=== PATIENT | female | born 1945 | race Caucasian/White ===

== ENCOUNTER 2019-10-09 11:57 | Emergency (ER) | payer OTHER, BC ==
[2019-10-09 12:04] VITALS: BP 133/89; PULSE 81; TEMP 97.5; BMI 33.6
[2019-10-09] MEDS ORDERED: OXYMETAZOLINE 0.05% NASAL SOLUTION 15 ML BOTTLE NS ONE ×2 (12:15→12:19)
--- NOTE | 2019-10-09 12:21 | PDOC ---
History of Present Illness - General Chief Complaint: Nasal Bleeding Stated Complaint: NOSE BLEED Time Seen by Provider: 10/09/19 12:03 - History of Present Illness Initial Comments: 10/09/19 12:18 74 F with h/o HLD presenting to ED with nosebleed. Pt states that she has had a nosebleed on and off for the past several weeks. Most of the time it resolves on its own. However, today pt has been unable to control the bleeding since 10AM. She states that it bleeds mostly out of her L nostril. Denies any injury or trauma to her nose. Pt takes baby aspirin daily, no other AC. Past History - Past Medical History Allergies/Adverse Reactions: Allergies Allergy/AdvReac Type Severity Reaction Status Date / Time codeine Allergy Verified 07/18/13 18:42 Home Medications: Ambulatory Orders Anastrozole [Arimidex -] 1 mg PO DAILY 07/18/13 Aspirin [ASA -] 81 mg PO DAILY 07/18/13 Atorvastatin Ca [Lipitor] 10 mg PO HS 07/18/13 Cholecalciferol (Vitamin D3) [Vitamin D] 1,000 unit PO 07/18/13 Gabapentin 300 mg PO 07/18/13 COPD: No Hypercholesterolemia: Yes - Psycho Social/Smoking Cessation Hx Smoking Status: No Smoking History: Never smoked Number of Cigarettes Smoked Daily: 0 Hx Alcohol Use: Yes (HALF GLASS OF WINE DAILY) Drug/Substance Use Hx: No Review of Systems - Review of Systems Comments:: 10/09/19 12:19 "GENERAL/CONSTITUTIONAL: No fever or chills. No weakness. HEAD, EYES, EARS, NOSE AND THROAT: + nosebleed, No change in vision. No ear pain or discharge. No sore throat. CARDIOVASCULAR: No chest pain, no shortness of breath, no loss of consciousness RESPIRATORY: No cough, wheezing, or hemoptysis. GASTROINTESTINAL: No nausea, vomiting, diarrhea or constipation. GENITOURINARY: No dysuria, frequency, or change in urination. MUSCULOSKELETAL: No joint or muscle swelling or pain. No neck or back pain. SKIN: No rash NEUROLOGIC: No vertigo, no change in strength/sensation. ENDOCRINE: No increased thirst. No abnormal weight change. HEMATOLOGIC/LYMPHATIC: No anemia, easy bleeding, or history of blood clots. ALLERGIC/IMMUNOLOGIC: No hives or skin allergy. *Physical Exam - Vital Signs Last Vital Signs Temp Pulse Resp BP Pulse Ox 97.5 F L 81 18 133/89 96 10/09/19 11:57 10/09/19 11:57 10/09/19 11:57 10/09/19 11:57 10/09/19 11:57 - Physical Exam 10/09/19 12:20 "GENERAL: Awake, alert, and fully oriented, in no acute distress. HEAD: No signs of trauma EYES: PERRLA, EOMI, sclera anicteric, conjunctiva clear ENT: + active bleeding from L nare, source not visualized, + blood in posterior OP, Auricles normal inspection, hearing grossly normal, Moist mucosa NECK: Nontender, no stepoffs, Normal ROM, supple, no lymphadenopathy, JVD, or masses LUNGS: Breath sounds equal, clear to auscultation bilaterally. No wheezes, and no crackles HEART: Regular rate and rhythm, normal S1 and S2, no murmurs, rubs or gallops ABDOMEN: Soft, nontender, normoactive bowel sounds. No guarding, no rebound. No masses EXTREMITIES: Normal range of motion, no edema. No clubbing or cyanosis. No cords, erythema, or tenderness NEUROLOGICAL: Cranial nerves II through XII intact. 5/5 strength and sensation in all extremities, Normal speech, normal gait, normal cerebellar function SKIN: Warm, Dry, normal turgor, no rashes or lesions noted. ED Treatment Course - LABORATORY CBC & Chemistry Diagram: 10/09/19 12:32 10/09/19 12:32 Medical Decision Making - Medical Decision Making 10/09/19 12:20 74 F with epistaxis. On baby ASA. Pt HD stable. - Labs, coags - Direct pressure applied with nose clip 10/09/19 12:39 Pt reassessed after 15 minutes of direct pressure - continues to have bleeding from L nare Afrin spray administered Clip re-placed 10/09/19 13:12 Pt continues to have bleeding despite afrin and pressure Will attempt to pack with TXA-soaked gauze 10/09/19 13:55 TXA soaked gauze inserted into L nare for 10 minutes with subsequent resolution of epistaxis Pt is well appearing, with normal vitals. Clinically stable for DC at this time. I discussed the physical exam findings, ancillary test results and final diagnoses with the patients family. I answered all of their questions. The family was satisfied with the care received and felt comfortable with the discharge plan and treatment plan. They agree to follow up with the primary care physician within 24-72 hours. Discharge - Discharge Information Problems reviewed: Yes Clinical Impression/Diagnosis: Epistaxis Condition: Stable Disposition: HOME - Follow up/Referral Referrals: Dylan Damon MD [Staff Physician] - - Patient Discharge Instructions Patient Printed Discharge Instructions: DI for Nosebleed Additional Instructions: Keep your nostrils moisturized to prevent recurrent nosebleeds. Apply vaseline with a cotton swab to both nostrils daily. A humidifier at home can help prevent drying out of your nostrils. If you have a recurrent nosebleed, administer the Afrin nasal spray, pinch your nose, and lean forward. If you have persistent nosebleed that does not stop with direct pressure, lightheadedness or dizziness, or any other concerning symptoms, return to the ER immediately. Otherwise, follow up with an [id number] specialist for further evaluation of your nosebleeds. Call the number provided to make an appointment. Follow up with your primary doctor within 1 week for a check up. - Post Discharge Activity
[2019-10-09 12:43] LABS: BASO % 1.2 % (0-2.0); HEMOGLOBIN 14.3 GM/dl (10.7-15.3); MEAN CELL VOLUME 100.8 fl (80-96); MEAN PLT VOLUME 7.4 fl (7.5-11.1); MONO % 6.1 % (3.8-10.2); WHITE BLOOD COUNT 10.1 K/mm3 (4.0-10.8)
[2019-10-09 12:48] LABS: EOS % 1.5 % (0-4.5); HEMATOCRIT 42.4 % (32.4-45.2); LYMPH % 7.7 % (8-40); MCH 33.9 pg (25.7-33.7); MCHC 33.7 g/dl (32.0-36.0); NEUT % 83.5 % (42.8-82.8); PLATELET COUNT 344 K/MM3 (134-434); RBC 4.21 M/mm3 (3.60-5.2); RDW 12.7 % (11.6-15.6)
[2019-10-09 12:50] LABS: INR 1.06 (0.82-1.09); PROTHROMBIN TIME (PATIENT) 11.9 SEC (10.2-13.0)
[2019-10-09 12:51] LABS: ALBUMIN 3.7 g/dl (3.4-5.0); BILIRUBIN,TOTAL 0.9 mg/dl (0.2-1); CALCIUM 9.4 mg/dl (8.5-10); CREATININE 0.9 mg/dl (0.55-1.3); POTASSIUM 4.1 mmol/L (3.5-5.1); TOT PROT 7.2 g/dl (6.4-8.2)
[2019-10-09] MEDS ORDERED: TRANEXAMIC ACID 1000 MG/10 ML VIAL IVPUSH ONE (13:01)
[2019-10-09] MEDS ORDERED: TRANEXAMIC ACID 1000 MG/10 ML VIAL ONE (13:06)
== END 2019-10-09 14:01 | disposition home or self-care (01) ==
LOC: FER 11:57
PROC: 3E033GC Introduction of Other Therapeutic Substance into Peripheral Vein, Percutaneous Approach (ICD-10-PCS; principal; 2019-10-09)
DX: R04.0 Epistaxis (principal); Z88.6 Allergy status to analgesic agent; E78.00 Pure hypercholesterolemia, unspecified
CPT/HCPCS: 36415; 80053; 85025; 85610; 85730; 86850; 86870; 86900; 86901; 86902; 99282-25